=== PATIENT | female | born 1995 | race Caucasian/White ===

== ENCOUNTER 2022-02-08 18:43 | Emergency (ER) | payer BC ==
[2022-02-08 20:01] LABS: #Eosinphils 0.2 10x3/uL (0.0-0.5); #Monocytes 0.6 10x3/uL (0.0-1.1); #Neutrophils 7.8 10x3/uL (1.5-8.4); %Basophils 0.3 % (0.0-2.0); %Lymphocytes 23.5 % (18.0-47.0); %Monocytes 5.1 % (0.0-10.0); %Neutrophils 68.5 % (40.0-75.0); Hemoglobin 11.2 g/dL (12.0-15.5); Mean Corpuscular Hemoglobin 28.7 pg (27.0-33.0); Mean Corpuscular Volume 82.1 fl (81.6-98.3); Mean Platelet Volume 9.1 fl (7.4-10.4); Platelet Count 256 10x3/uL (150-450); RBC Distribution Width 12.3 % (11.5-14.5); White Blood Cell (WBC) Count 11.3 10x3/uL (3.5-10.5)
[2022-02-08 20:24] LABS: Bilirubin Neg (Negative); Blood, Urine 250 (Negative); Clarity Slightly Cloudy (Clear); Glucose, Urine (Dipstick) Normal (Negative); Ketone, Urine Negative (Negative); Leukocyte Negative (Negative); Nitrite Negative (Negative); Protein, Urine (Dipstick) 15 mg/dl (Neg-Trace); Urobilinogen Normal mg/dL (Less than 2); pH, Urine 6.5 (5.0-9.0)
[2022-02-08 20:31] LABS: Bacteria/HPF Rare-Few HPF (None Seen); RBC/HPF 21-50 HPF (0-3); Squamous Epithelial 0-3 HPF (0-3)
== END 2022-02-08 20:41 | disposition home or self-care (01) ==
LOC: CSHERS 18:43
DX: O20.9 Hemorrhage in early pregnancy, unspecified (principal); Z3A.12 12 weeks gestation of pregnancy
CPT/HCPCS: 81003; 81015; 84702; 85025; 86900; 86901

== ENCOUNTER 2022-07-23 10:12 | Inpatient (IN) | payer BC ==
[~2022-07-23 10:12] MED LIST: Bupivacaine HCl 0.5%/Epinephrine 1:200,000/PF 30 ml Vial ONE; Bupivacaine/Epinephrine 0.25% 30 ML VIAL ONE; Lidocaine 2% PF 5 ML VIAL ONE
[2022-07-23] MEDS ORDERED: HYDROcodone/Acetaminophen 5/325 mg Tablet PO PRN ×2 (10:46)
[2022-07-23] MEDS ORDERED: Ibuprofen 800 MG TAB PO PRN (10:46)
[2022-07-23] MEDS ORDERED: Promethazine HCl 25 MG/ML VIAL IM PRN ×4 (10:46→19:44)
[2022-07-23] MEDS ORDERED: Lidocaine 1% (PF) 30 ML VIAL SC PRN (10:46)
[2022-07-23] MEDS ORDERED: Ondansetron PF 4 MG/2 ML Vial IVP PRN ×4 (10:46→19:44)
[2022-07-23] MEDS ORDERED: hydrALAZINE 20 MG/ML VIAL SLOW IVP PRN ×2 (10:46→19:44)
[2022-07-23] MEDS ORDERED: Morphine 10 MG/ML VIAL ONE (10:56)
[2022-07-23] MEDS ORDERED: Lactated Ringer's 1,000 ML IV SCH ×2 (11:00)
[2022-07-23] MEDS ORDERED: NS w/ Oxytocin 30 units 500 ML IV SCH ×2 (11:00→21:00)
[2022-07-23] MEDS ORDERED: Morphine 10 MG/ML VIAL SLOW IVP SCH (11:00)
[2022-07-23] MEDS ORDERED: Fentanyl 2 mcg/Bup 0.1% Cadd 100 ML ONE (11:17)
[2022-07-23 11:27] LABS: Hemoglobin 11.3 g/dL (12.0-15.5); Mean Corpuscular HGB CONC 34.2 g/dL (32.0-36.0); Mean Corpuscular Hemoglobin 28.8 pg (27.0-33.0); Mean Platelet Volume 10.8 fl (7.4-10.4); Platelet Count 251 10x3/uL (150-450); RBC Distribution Width 12.9 % (11.5-14.5); Red Blood Cell (RBC) Count 3.93 10x6/uL (3.90-5.03); White Blood Cell (WBC) Count 14.8 10x3/uL (3.5-10.5)
[2022-07-23] MEDS ORDERED: Lactated Ringer's 500 ML IV PRN (11:44)
[2022-07-23] MEDS ORDERED: Moisturizing Cream (Eucerin) 113 GM JAR TOP PRN ×2 (11:44→15:30)
[2022-07-23] MEDS ORDERED: Naloxone HCl 0.4 mg/ml Vial IVP PRN ×4 (11:44→15:30)
[2022-07-23] MEDS ORDERED: Acetaminophen 325 MG TAB PO PRN (11:44)
[2022-07-23] MEDS ORDERED: ePHEDrine Sulfate 50 MG/10 ML VIAL SLOW IVP PRN (11:44)
[2022-07-23] MEDS ORDERED: diphenhydrAMINE 50 MG/ML VIAL IVP PRN ×2 (11:44→15:30)
[2022-07-23] MEDS ORDERED: Communication Order-Pharmacy FS SCH ×2 (11:45→15:30)
[2022-07-23 11:56] LABS: HBSAg Index 0.15 S/CO (0-0.99); Hep B Surf Ag Non-Reactive S/CO (NonReactive)
[2022-07-23 11:57] LABS: Syphilis Antibody Nonreactive (Nonreactive); Syphilis Antibody Index 0.04 S/CO (<1.00 Non-Reactive)
[2022-07-23] MEDS ORDERED: Fentanyl 2 mcg/Bupivacaine 0.1% Cassette 100 ML EPIDURAL SCH (12:00)
[2022-07-23] MEDS ORDERED: Bicitra 30 ML UDCUP PO PRN (14:57)
[2022-07-23] MEDS ORDERED: Famotidine/PF 20 mg/2ml Vial SLOW IVP PRN (14:57)
[2022-07-23] MEDS ORDERED: CEFAZOLIN 2 GM in Sodium Chloride 0.9% 100 ML IVPB SCH (15:00)
[2022-07-23] MEDS ORDERED: Azithromycin 500 MG in Sodium Chloride 0.9% 250 ML 250 ML IVPB SCH (15:00)
[2022-07-23] MEDS ORDERED: CEFAZOLIN 2 GM VIAL ONE ×2 (15:01→15:08)
[2022-07-23] MEDS ORDERED: Azithromycin 500 MG VIAL ONE ×2 (15:01→15:10)
[2022-07-23] MEDS ORDERED: Famotidine/PF 20 mg/2ml Vial ONE (15:06)
[2022-07-23] MEDS ORDERED: Ondansetron PF 4 MG/2 ML Vial ONE (15:20)
[2022-07-23] MEDS ORDERED: Dexamethasone 4 mg/ml Vial ONE (15:20)
[2022-07-23] MEDS ORDERED: Ketorolac Tromethamine 30 MG/ML VIAL ONE (15:21)
[2022-07-23] MEDS ORDERED: Oxytocin 10 UNITS/ML VIAL ONE (15:21)
[2022-07-23] MEDS ORDERED: Meperidine HCl/PF 25 MG/ML VIAL SLOW IVP PRN (15:30)
[2022-07-23] MEDS ORDERED: Promethazine HCl 25 MG SUPP PR PRN (15:30)
[2022-07-23] MEDS ORDERED: Naloxone HCl 0.4 mg/ml Vial IV PRN (15:30)
[2022-07-23] MEDS ORDERED: Ondansetron HCl/PF 4 MG/2 ML Vial IVP PRN (15:30)
[2022-07-23] MEDS ORDERED: Fentanyl 100 MCG/2 ML VIAL SLOW IVP PRN (15:30)
[2022-07-23] MEDS ORDERED: Fentanyl 100 MCG/2 ML VIAL ONE (15:38)
[2022-07-23] MEDS ORDERED: Ketamine 50 MG/ML (10ML VIAL) ONE (15:49)
[2022-07-23] MEDS ORDERED: Midazolam HCl 2 mg/2 ml Vial ONE (15:49)
[2022-07-23] MEDS ORDERED: Promethazine HCl 25 MG/ML VIAL ONE (15:54)
[2022-07-23] MEDS ORDERED: Morphine PF 10 MG/10 ML VIAL ONE (16:02)
[2022-07-23] MEDS ORDERED: Milk Of Magnesia 30 ML UDCUP PO PRN (19:44)
[2022-07-23] MEDS ORDERED: Measles/Mumps/Rubella 10 MCG/0.5 ML VIAL SC ONE (19:44)
[2022-07-23] MEDS ORDERED: Varicella virus, LIVE 0.5 ML VIAL SC ONE (19:44)
[2022-07-23] MEDS ORDERED: Preparation H Ointment 28 GM TUBE PR PRN (19:44)
[2022-07-23] MEDS ORDERED: diphenhydrAMINE 25 MG CAP PO PRN (19:44)
[2022-07-23] MEDS ORDERED: Methylergonovine 0.2 MG/ML VIAL IM PRN (19:44)
[2022-07-23] MEDS ORDERED: Benzocaine-Menthol 82.5 ML CAN TOP PRN (19:44)
[2022-07-23] MEDS ORDERED: Misoprostol 200 MCG TAB VAG PRN (19:44)
[2022-07-23] MEDS ORDERED: Boostrix 0.5 ML (Tdap) VIAL (>/=7 yrs of age) IM ONE (19:44)
[2022-07-23] MEDS ORDERED: Lanolin Ointment 7 GM TUBE TOP PRN (19:44)
[2022-07-23] MEDS ORDERED: Bisacodyl 10 MG SUPP PR PRN (19:44)
[2022-07-23 20:33] LABS: SARS-CoV-2 NAA Rapid Test Not Detected (NotDetected)
[2022-07-23] MEDS ORDERED: Ferrous Sulfate 325 MG TAB PO SCH (21:15)
[2022-07-23] MEDS: Ketorolac Tromethamine 30 MG/ML VIAL IVP SCH (22:31)
[2022-07-24] MEDS ORDERED: HYDROcodone/Acetaminophen 5/325 mg Tablet PO PRN (03:30)
[2022-07-24] MEDS ORDERED: Zolpidem Tartrate 5 MG TAB PO PRN (03:30)
[2022-07-24] MEDS: Ketorolac Tromethamine 30 MG/ML VIAL IVP SCH (04:46)
[2022-07-24 05:34] LABS: #Neutrophils 16.4 10x3/uL (1.5-8.4); %Basophils 0.2 % (0.0-2.0); %Eosinophils 0.1 % (0.0-6.0); %Lymphocytes 8.9 % (18.0-47.0); %Monocytes 5.3 % (0.0-10.0); %Neutrophils 84.7 % (40.0-75.0); Hemoglobin 8.2 g/dL (12.0-15.5); Mean Corpuscular Hemoglobin 29.1 pg (27.0-33.0); Mean Corpuscular Volume 85.5 fl (81.6-98.3); Mean Platelet Volume 10.5 fl (7.4-10.4); Platelet Count 200 10x3/uL (150-450); RBC Distribution Width 12.9 % (11.5-14.5); Red Blood Cell (RBC) Count 2.82 10x6/uL (3.90-5.03); White Blood Cell (WBC) Count 19.3 10x3/uL (3.5-10.5)
[2022-07-24] MEDS: Docusate 100 MG CAP PO SCH ×4 (08:25→21:28)
[2022-07-24] MEDS: HYDROcodone/Acetaminophen 5/325 mg Tablet PO PRN ×2 (08:25→15:39)
[2022-07-24] MEDS: Prenatal Vitamin 1 TAB PO SCH (08:25)
[2022-07-24] MEDS: Ferrous Sulfate 325 MG TAB PO SCH ×2 (08:25→17:55)
[2022-07-24] MEDS: Simethicone Chewable 80 MG TAB PO PRN ×2 (10:09→15:39)
[2022-07-24] MEDS: Ibuprofen 800 MG TAB PO SCH ×2 (10:55→17:55)
[2022-07-24 12:31] VITALS: BMI 35.1
[2022-07-25] MEDS: Ibuprofen 800 MG TAB PO SCH ×2 (00:15→11:11)
[2022-07-25] MEDS: HYDROcodone/Acetaminophen 5/325 mg Tablet PO PRN (00:17)
[2022-07-25 07:48] VITALS: BP 126/70; TEMP 97.9
[2022-07-25] MEDS: Docusate 100 MG CAP PO SCH (08:13)
[2022-07-25] MEDS: Ferrous Sulfate 325 MG TAB PO SCH (08:13)
[2022-07-25] MEDS: Prenatal Vitamin 1 TAB PO SCH (08:13)
== END 2022-07-25 14:20 | disposition home or self-care (01) | DRG 786 ==
LOC: CSHLD/OP 10:12 → CSHLD 10:43 → CSHPP 20:01
PROVIDERS: ADMIT Obstetrics & Gynecology; ATTEND Obstetrics & Gynecology
PROC: 10D00Z1 Extraction of Products of Conception, Low, Open Approach (ICD-10-PCS; principal; 2022-07-23)
DX: O42.013 Preterm premature rupture of membranes, onset of labor within 24 hours of rupture, third trimester (principal); O60.14X0 Preterm labor third trimester with preterm delivery third trimester, not applicable or unspecified; Z3A.36 36 weeks gestation of pregnancy; Z37.0 Single live birth; Z20.822 Contact with and (suspected) exposure to COVID-19; O24.425 Gestational diabetes mellitus in childbirth, controlled by oral hypoglycemic drugs; Z79.84 Long term (current) use of oral hypoglycemic drugs; O33.9 Maternal care for disproportion, unspecified; O32.4XX0 Maternal care for high head at term, not applicable or unspecified
CPT/HCPCS: 36415; 51702; 85025; 85027; 86780; 86850; 86900; 86901; 87340; 99285; J1100; J1885; J2001; J2250; J2274; J2405; J2550; J2590; J3010; U0002